=== PATIENT | female | born 1965 | race Caucasian/White ===

== ENCOUNTER → 2018-04-22 16:19 | Outpatient (CLI) | payer OTHER, SELFPAY ==
[2018-04-28 09:58] LABS: HPV Reflexed? NOT INDICATED
== END ==
PROVIDERS: Visit Provider Obstetrics & Gynecology
DX: Z12.4 Encounter for screening for malignant neoplasm of cervix (principal)
CPT/HCPCS: 88175; G0145

== ENCOUNTER → 2019-05-10 16:35 | Outpatient (CLI) | payer OTHER, SELFPAY ==
[2019-05-10 18:47] LABS: Hemoglobin A1c 5.7 % (4.2-6.3)
[2019-05-10 18:50] LABS: Estradiol < 11.0 pg/mL; Free T3 2.6 pg/mL (2.18-3.98); T4 Free Direct 0.96 ng/dL (0.76-1.46); Thyroid Stim Hormone (TSH) 2.88 uIU/mL (0.358-3.74)
[2019-05-16 16:55] LABS: HPV Reflexed? NOT INDICATED
== END ==
PROVIDERS: Visit Provider Obstetrics & Gynecology
DX: Z12.4 Encounter for screening for malignant neoplasm of cervix (principal); N92.6 Irregular menstruation, unspecified
CPT/HCPCS: 36415; 82670; 83036; 84144; 84403; 84439; 84443; 84481; 88175; G0145

== ENCOUNTER → 2019-05-19 14:58 | Outpatient (CLI) | payer OTHER, SELFPAY ==
[2019-05-19 16:14] LABS: Follicle Stimulating Hormone 82.6 mIU/mL
[2019-05-22 14:07] LABS: Thyroid Peroxidase AB 16 IU/mL (0-34)
[2019-05-22 17:38] LABS: Thyroglobulin Antibody < 1.0 IU/mL (0.0-0.9)
== END ==
PROVIDERS: Visit Provider Obstetrics & Gynecology
DX: E03.9 Hypothyroidism, unspecified (principal); N92.6 Irregular menstruation, unspecified
CPT/HCPCS: 36415; 83001; 86376; 86800

== ENCOUNTER → 2019-07-05 16:17 | Outpatient (CLI) | payer OTHER, SELFPAY ==
--- NOTE | 2019-07-05 16:23 | BI_ITS ---
MAMMOGRAPHY - BILATERAL SCREENING REASON FOR EXAM: Female, 54 years old. Routine annual screening examination. PERTINENT HISTORY: Aunt with breast cancer. TECHNIQUE: Digital bilateral breast roni (3D mammographic acquisition) in the CC and MLO projections. 2-D mediolateral oblique (MLO) and craniocaudad (CC) views of both breasts were obtained. CAD: Full Field Digital Mammography with Computer Added Detection was performed. COMPARISON: Comparison is made with prior osseous examination May 31, 2018. FINDINGS: Breast Composition: The breasts are heterogeneously dense, which may obscure small masses. There are no dominant masses or suspicious calcifications. No other significant abnormalities are identified. There has been no significant change since the prior study. BI/SCREEN MAMM (CAD) W/RONI BILAT IMPRESSION: Stable bilateral screening mammogram. Yearly follow-up mammogram recommended. (A) ASSESSMENT CATEGORY: BIRADS Category 1: Negative. A letter regarding these results will be sent to the patient by the facility within 30 days. Approximately 10% of breast cancers are not detected by mammography. A normal mammogram should not delay biopsy of a clinically suspicious abnormality. [id number] Electronically Signed: Mando Griggs, at 9:27 EDT , Service support ,
== END ==
PROVIDERS: Family Provider Family Medicine; PCP Family Medicine; Referring Provider Obstetrics & Gynecology; Visit Provider Obstetrics & Gynecology
DX: Z12.31 Encounter for screening mammogram for malignant neoplasm of breast (principal)
CPT/HCPCS: 77063; 77067

== ENCOUNTER → 2020-07-23 08:14 | Outpatient (CLI) | payer OTHER, SELFPAY ==
--- NOTE | 2020-07-23 08:17 | BI_ITS ---
MAMMOGRAPHY - BILATERAL SCREENING REASON FOR EXAM: Female, 55 years old. Routine annual screening examination. PERTINENT HISTORY: Aunt with breast cancer. TECHNIQUE: Digital bilateral breast roni (3D mammographic acquisition) in the CC and MLO projections. 2-D mediolateral oblique (MLO) and craniocaudad (CC) views of both breasts were obtained. CAD: Full Field Digital Mammography with Computer Added Detection was performed. COMPARISON: Comparison is made with prior examination of 07/05/2019. FINDINGS: Breast Composition: The breasts are heterogeneously dense, which may obscure small masses. There are no dominant masses or suspicious calcifications. No other significant abnormalities are identified. There has been no significant change since the prior study. BI/SCREEN MAMM (CAD) W/RONI BILAT IMPRESSION: Stable bilateral screening mammogram. Yearly follow-up mammogram recommended. (A) ASSESSMENT CATEGORY: BIRADS Category 1: Negative. A letter regarding these results will be sent to the patient by the facility within 30 days. Approximately 10% of breast cancers are not detected by mammography. A normal mammogram should not delay biopsy of a clinically suspicious abnormality. [id number] Electronically Signed: Mando Griggs, at 10:22 EDT , Service support ,
== END ==
PROVIDERS: PCP Family Medicine; Referring Provider Obstetrics & Gynecology; Visit Provider Obstetrics & Gynecology
DX: Z12.31 Encounter for screening mammogram for malignant neoplasm of breast (principal); Z80.3 Family history of malignant neoplasm of breast
CPT/HCPCS: 77063; 77067

== ENCOUNTER → 2020-08-26 08:39 | Outpatient (CLI) | payer OTHER, SELFPAY ==
[2020-08-26 10:28] LABS: Anion Gap 6 (5-15); BUN 21 mg/dL (7-18); BUN/Creat Ratio 32.3 RATIO (10-20); Calcium,Total 9.2 mg/dL (8.5-10.1); Chloride 106 mmol/L (98-107); Cholesterol 192 mg/dL (200); Creatinine, Serum 0.65 mg/dL (0.55-1.02); EST Glomerular Filtration Rate 101 mL/min (>60); Est Glom Filt Rate - Afr Amer 122 mL/min (>60); Glucose 104 mg/dL (74-106); High Density Lipoprotein 77 mg/dL; Potassium 4.1 mmol/L (3.5-5.1); Sodium Level 139 mmol/L (136-145); Triglycerides 28 mg/dL; Very Low Density Lipoprotein 6 mg/dL (5-40)
== END ==
PROVIDERS: PCP Family Medicine; Referring Provider Nurse Practitioner Family; Visit Provider Nurse Practitioner Family
DX: Z13.220 Encounter for screening for lipoid disorders (principal); Z13.228 Encounter for screening for other metabolic disorders
CPT/HCPCS: 36415; 80048; 80061

== ENCOUNTER → 2020-09-06 12:45 | Outpatient (CLI) | payer OTHER, SELFPAY | PROVIDERS: PCP Family Medicine; Referring Provider Family Medicine; Visit Provider Family Medicine | DX: J06.9 Acute upper respiratory infection, unspecified (principal) | CPT/HCPCS: 87635; U0003 ==

== ENCOUNTER 2020-09-12 05:52 | Day surgery (SDC) | payer OTHER, SELFPAY ==
[2020-09-10 16:46] LABS: Hematocrit 37.8 % (37-47); Hemoglobin 12.9 g/dL (12.0-15.0); Mean Corp Hgb Conc 34.1 g/dL (32-36); Mean Corpuscular Hgb 29.3 pg (27.0-32.0); Mean Corpuscular Volume 85.7 fL (81-99); Mean Platelet Vol. 9.8 fl (6.2-12.0); Platelet Count 285 K/mm3 (150-450); RBC Distribution Width CV 12.9 % (11.6-14.6); RBC Distribution Width SD 40.1 fl (35.1-43.9); Red Blood Count 4.41 M/mm3 (4.2-5.4); White Blood Count 9.4 K/mm3 (4.4-11.0)
[2020-09-10 16:58] LABS: Prothrombin Time (Protime)PT. 12.9 SECONDS (11.7-14.9)
[2020-09-10 16:59] LABS: Partial Thromboplast Time 29.1 Seconds (24.1-36.2)
[2020-09-12] VITALS (7 sets, daily range): BP systolic 87–116; BP diastolic 52–77; PULSE 57–82; RESP 16–18; TEMP 36.1–36.9; O2SAT 97–100; BMI 21.2
[2020-09-12] MEDS: Lactated Ringers 1,000 ML 125 ML IV (06:35)
--- NOTE | 2020-09-12 07:09 | HP.PCM_ITS ---
History and Physical Date of Admission: 09/12/20 Surgical History and Physical Date: 09/10/2020 Name: ALEJA SUÁERZ Age: 55 Date of : 1965 Aleja Suárez, a 55 year old female 3 0 0 0 3, presents for Hysteroscopy, dilation and curettage on September 12, 2020 at 7:30. -- Aleja is scheduled for hysteroscopy, dilation and curettage with Symphion polypectomy for recurrent postmenopausal bleeding. She had negative COVID19 testing, obtained last week after reports sore throat. She denies fever, chills, sore throat, cough or chest pain. She feels well today. [facility] ULTRASOUND 07/19/20 UTERUS: 7.8 x 4.9 x 3.7cm. ENDOMETRIAL ECHO: 1.7mm. RIGHT OVARY: 1.5 x 1.2 x 1.3cm. LEFT OVARY: 1.6 x 1.2 x 1.4cm. BLADDER: No bladder masses visualized. FREE FLUID: NONE. OTHER PERTINENT FINDINGS: small nabothian cysts seen in cx. and microcalcifications seen in endometrium. MEDICATIONS HISTORY: Patient is also takin. multivitamin chewable tablet ALLERGIES: No Known Allergies Infections - Chicken pox and [place] Illnesses - no serious past illnesses Accidents - no injuries of consequence Hospitalizations - Childbirth and see surgery shingles; Review of Systems: GENERAL - Denies fever, or chills SKIN - Denies skin changes EYES - Denies visual changes EARS - Denies difficulty hearing NOSE - Denies nasal congestion or bleeding MOUTH - Denies sore throat or difficulty swallowing NECK - Denies pain or swelling RESPIRATORY - Denies shortness of breath or wheezing CARDIOVASCULAR - Denies palpitations or chest pain GASTROINTESTINAL - Denies nausea, vomiting, diarrhea, constipation GENITOURINARY - Denies dysuria, frequency of urination, incontinence of urine MUSCULOSKELETAL - Denies joint or muscle pain NEUROLOGICAL - Denies localized numbness or weakness PSYCHIATRIC - Denies depression or anxiety ENDOCRINE - Denies heat or cold intolerance, weight loss or gain HEMATO-IMMUNOLOGIC - Denies excesive bleeding with cuts SOCIAL HISTORY: Alcohol Use - denies drinking Smoking - denies smoking Diet - balanced Diet Lifestyle - moderate stress lifestyle and work and family Exercise - regular Seat Belt Use - always Employer - [employer] 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 Drug Use - denies use of street drugs Sexual Activity - Hours Worked - 40 hours per week Spouse-Sig Other Name - Sly Spouse-Sig Other Occupation - retired [employer] Spouse-Sig Other Phone No - [phone] Children Name(s) - Ken Kim Chandler, Taylor (adopted daughter) Control - Vasectomy FAMILY HISTORY: MENSTRUAL HISTORY: LMP Known?- DefiniteAmount/Duration - 1 day, LMP - 06/30/20, Age Onset Menarche - 14 PAST PREGNANCIES: Total Pregnancies - 3; Full Term Pregnancies - 3; Premature - 0; Abortions, Induced - 0; Abortions, Spontaneous - 0; Ectopics - 0; Multiple Births - 0; Living Children - 3 SURGICAL HISTORY: 1. wisdom teeth ; - PHYSICAL EXAM BP- 108/56 Sitting, Right arm, regular cuff Weight- 116.17713 lbs Height- 62.00 inch BMI:21.26 CONSTITUTIONAL - NAD, well nourished, and well developed SKIN - No rash, lesions, or ulcers HEENT - normocephalic, atraumatic, sclerae anicteric NECK - No nodes, no nuchal rigidity and thyroid normal size and texture LYMPH NODES - Palpation of lymph nodes in neck and groins within normal limits LUNGS - CTA x2 without wheezes, crackles or rales CARDIAC - Regular rate and rhythm without rubs, murmurs, or gallops BREAST - No dominant masses, no tenderness, no axillary adenopathy, no nipple discharge, no skin changes ABDOMEN - Without hepatosplenomegaly, distention, masses, rebound, or guarding; normal bowel sounds; no hernias EXTREMITIES - No edema or calf tenderness NEUROLOGICAL - normal gait, normal balance, normal motor PSYCHIATRIC - A and O to time, place, person, mood and affect DETAILED PELVIC EXAM External Genital Vagina - non-tender without lesions Urethra/Urethral Meatus - non-tender Bladder - non-tender Vagina - vaginal avilez are pink and moist without loss of rugae and no evidence of atropy, there is blood tinged discharge in vault and appears to be coming from cervical os Cervix - without cervical motion tenderness and has normal size and features without evident lesions Uterus - 5-6 cm in size, mobile and nontender Adnexa - clear without massess or tenderness ASSESSMENT/PLAN: 1. Other Specified Abnormal Uterine And Vaginal Bleeding and Postmenopausal Bleeding US reviewed - 1.7mm endometrium, however, cystic structure present - suggestive of polyp. Ovaries normal in appearance. Plan for hysteroscopy, dilation and curettage, polypectomy Procedural r/b/i/a reviewed, consents signed Preop instructions reviewed as well as anticipated outpatient hospitalization and recovery Pt given opportunity to ask questions and questions answered to her satisfaction.
--- NOTE | 2020-09-12 07:30 | EMB_PTH ---
PATIENT: BO CHANDLER [place] [facility] [id number] AGE/SX: 55/F ROOM: RE09/12/[address]: Dr. Laquita Rogers MD : 1965 BED: DIS: 09/12/2020 SPEC #: [id number] RECD: 09/12/20 10:28 STATUS: BRIAN SUNITA #: [id number] ANNABEL: 09/12/20 07:[address]: Laquita Hanna DEPT: SURGICAL PATHOLOGY RECD BY: Lashawn Monaco ENTERED: 09/12/20 11:58 SP TYPE: ENDOM BX/C OTHR DR: Dr. Earnest Zheng MD Tissues: Endometrium, NOS Procedures: Surgery Specimen Level IV HEADER OPERATION: Hysterectomy, D & C Symphion PRE-OP DIAGNOSIS: Postmenopausal bleeding TISSUE SUBMITTED: Endometrial sampling and endocervical sampling with polyp MICROSCOPIC DIAGNOSIS Endometrial and endocervical sampling with polyp: Strips of benign endometrial epithelium and superficial fragments of benign endometrial tissue, consistent with atrophic endometrium. Fragments of benign endocervical epithelium. Fragments of benign inflamed stromal tissue, blood and mucous. Negative for hyperplasia. See comment. DILIP:mary 09/13/20 COMMENT No overlying epithelial lining is noted in these fragments. Correlation with clinical findings and appropriate follow up are necessary. Case has been reviewed in consultation with Dr. Rodriguez who concurs with the above diagnosis. IDC:AM MICROSCOPIC DESCRIPTION Slides are reviewed. GROSS DESCRIPTION Received in fixative is one container labeled with the patient's name and designated endometrial and endocervical sampling with polyp. The specimen consists of multiple fragments of hemorrhagic soft tissue that in aggregate measure 1.5 x 0.5 x 0.1 cm. The specimen is totally submitted in one cassette. / DILIP:mary 09/12/20 TC:5 CPT: 06901
[2020-09-12] MEDS: Lidocaine 1% (30 ml sdv) 30 ML Vial (07:45)
--- NOTE | 2020-09-12 09:13 | PCM.DC.D&C ---
Discharge Diet: No Restrictions Discharge Activity: Return to Normal Activity, May Shower, - - No tub bath x 2 weeks May resume sexual activity in: - - 2-4 weeks Call your doctor if you observe: Fever of 101 or Higher, Inability to urinate, Inability to have a bowel movement, Using more than one pad per hour, Shortness of breath, Chest pain, Calf discomfort, Uncontrolled pain Allergies/Adverse Reactions: Allergies No Known Allergies Allergy (Verified 09/04/20 08:12) Medications to take at Discharge Bacillus Coagulans [Probiotic] 1 ea PO DAILY 09/04/20 Calcium Carb/Vitamin D3/Vit K1 [Calcium + D Soft Chewable Tab] 1 ea PO DAILY 09/04/20 Multivitamin [Animal Chews] 1 ea PO DAILY 09/04/20 Ibuprofen Liquid [Motrin Liquid] 600 mg PO 4X/DAY PRN #300 ml 09/12/20 The following prescriptions were given: Ibuprofen Liquid [Motrin Liquid] 600 mg PO 4X/DAY PRN #300 ml PRN Reason: Pain 1-10 Or Fever Transmission Status: Pending to [facility] Orders to be completed after discharge: COVID 19 AG KARINA (RN COLLECT) Time Frame: 09/10/20, Facility: [facility], Location: Laboratory Primary Care Physician: Jayme Zheng MD [Primary Care Provider] - Test Results: Test results from this visit will be discussed in further detail at your follow-up appointment, if applicable. Please Follow Up With: Laquita Hanna MD When: 2-4 weeks
--- NOTE | 2020-09-12 09:17 | OP.PCM_ITS ---
Problem List (1) Postmenopausal bleeding Status: Acute Report of Operation Date of Procedure: 09/12/20 Pre-Operative Diagnosis: Postmenopausal bleeding. Endometrial polyp Post-Operative Diagnosis: Postmenopausal bleeding. Cervical polyp Surgery/Procedure Performed:: Hysteroscopy, dilation and curettage with Symphion endometrial sampling Description of Surgical Findings:: atrophic endometrium apical endocervical polyp noted compensation business partner: None Type of Anesthesia:: Local MAC Anesthesiologist: Codey Dsouza Specimen's removed: 1. endometrial and endocervical sampling with polyp Estimated Blood Loss (mL): 10 ml Fluids Replaced: 800 ml Description of Procedure: Indications: 55-year-old para 2 postmenopausal female with recurrent postmenopausal bleeding. She had previously had benign endometrial biopsy and pelvic ultrasound showed a 1.7 elevated inner endometrial stripe with calcifications suggestive of polyp. She is advised to proceed with hysteroscopy dilation and curettage with polypectomy as indicated. Procedural risks, benefits, indications and alternatives were reviewed. Procedure: Patient was brought to the operating room and signed and was performed. She is placed in the dorsal supine position and induced under MAC. She was repositioned into dorsolithotomy and examination under anesthesia was performed. Her perineum was prepped and straight catheterization of the bladder performed. She was draped in sterile fashion and a speculum was placed vaginally. Notably the vagina atrophic. The cervix was mildly stenosed and subsequently dilated. Uterine sound was performed in 5 cm initially. Hysteroscopy was performed demonstrating a false tract have been made however is not and unable to traverse the internal os due to lack of dilation apically, an endocervical polyp was noted. I performed hysteroscopy using a 3 mm scope demonstrating a thin endometrium. I again performed dilation at the angle of the os as demonstrated by the hysteroscopy. Hysteroscopy was then performed with the Symphion system with ease entering the endometrium.Hysteroscopic endometrial sampling was performed as well as endocervical polpypectomy. The procedure was complete. The scope was removed. The tenaculum was removed from the cervix and speculum removed from the vagina. There was excellent hemostasis. The patient was placed into dorsal supine, awakened, and transferred to the recovery room without complications. Sponge counts correct x 2. - Complications none - Admit VTE Documentation VTE Present on Admission: No VTE Mechan Device Prophylaxis: SCD's VTE Pharm Prophylaxis ordered?: No
== END 2020-09-12 10:23 | disposition home or self-care (01) ==
LOC: SDC 05:52 → AC 05:53
PROVIDERS: PCP Family Medicine; Referring Provider Obstetrics & Gynecology; Visit Provider Obstetrics & Gynecology
PROC: 0UB98ZZ Excision of Uterus, Via Natural or Artificial Opening Endoscopic (ICD-10-PCS; CPT 58558; principal; 2020-09-12 07:15)
DX: N95.0 Postmenopausal bleeding (principal); N85.8 Other specified noninflammatory disorders of uterus; N84.1 Polyp of cervix uteri
CPT/HCPCS: 00952; 58558; 36415; 85027; 85610; 85730; 86850; 86900; 86901; 88305; J7120; A4216; J2405

== ENCOUNTER → 2021-06-03 18:23 | Outpatient (CLI) | payer OTHER, SELFPAY | LOC: LAB 18:24 → LABSPEC 20:18 | PROVIDERS: PCP Family Medicine; Visit Provider Family Medicine | DX: U07.1 COVID-19 (principal) | CPT/HCPCS: 87635; U0005; U0003 ==

== ENCOUNTER → 2021-08-15 08:01 | Outpatient (CLI) | payer OTHER, SELFPAY ==
--- NOTE | 2021-08-15 08:17 | BI_ITS ---
MAMMOGRAPHY - BILATERAL SCREENING REASON FOR EXAM: Female, 56 years old. Routine annual screening examination. PERTINENT HISTORY: Aunt with breast cancer. TECHNIQUE: Digital bilateral breast roni (3D mammographic acquisition) in the CC and MLO projections. 2-D mediolateral oblique (MLO) and craniocaudad (CC) views of both breasts were obtained. CAD: Full Field Digital Mammography with Computer Added Detection was performed. COMPARISON: Comparison is made with prior study 07/23/2020 and 07/05/2019. FINDINGS: Breast Composition: The breasts are heterogeneously dense, which may obscure small masses. There are no dominant masses or suspicious calcifications. No other significant abnormalities are identified. There has been no significant change since the prior study. BI/SCRN MAMM (CAD)W/RONI BILAT IMPRESSION: Stable bilateral screening mammogram. Yearly follow-up mammogram recommended. (A) ASSESSMENT CATEGORY: BIRADS Category 1: Negative. A letter regarding these results will be sent to the patient by the facility within 30 days. Approximately 10% of breast cancers are not detected by mammography. A normal mammogram should not delay biopsy of a clinically suspicious abnormality. [id number] Electronically Signed: Mando Griggs MD at 9:08 EDT , Service support ,
== END ==
PROVIDERS: PCP Family Medicine; Referring Provider Obstetrics & Gynecology; Visit Provider Obstetrics & Gynecology
DX: Z12.31 Encounter for screening mammogram for malignant neoplasm of breast (principal)
CPT/HCPCS: 77063; 77067

== ENCOUNTER → 2022-04-09 | Outpatient (CLI) | payer OTHER, SELFPAY ==
[2022-04-09 11:18] LABS: Anion Gap 7 (5-15); BUN 17 mg/dL (7-18); BUN/Creat Ratio 28.5 RATIO (10-20); Calcium,Total 9.2 mg/dL (8.5-10.1); Chloride 105 mmol/L (98-107); Cholesterol 212 mg/dL (200); EST Glomerular Filtration Rate 111 mL/min (>60); Est Glom Filt Rate - Afr Amer 134 mL/min (>60); Glucose 104 mg/dL (74-106); High Density Lipoprotein 66 mg/dL; Potassium 3.8 mmol/L (3.5-5.1); Sodium Level 140 mmol/L (136-145); Triglycerides 30 mg/dL; Very Low Density Lipoprotein 6 mg/dL (5-40)
== END | disposition home or self-care (01) ==
LOC: MFPLAB 09:04
PROVIDERS: PCP Family Medicine; Visit Provider Nurse Practitioner Family
DX: Z13.1 Encounter for screening for diabetes mellitus (principal); Z13.220 Encounter for screening for lipoid disorders
CPT/HCPCS: 36415; 80048; 80061

== ENCOUNTER → 2022-10-28 | Outpatient (CLI) | payer OTHER, SELFPAY ==
[2022-10-31 12:29] LABS: HPV APTIMA, High Risk Negative (Negative)
== END | disposition home or self-care (01) ==
LOC: LABSPEC 10:05
PROVIDERS: PCP Family Medicine; Visit Provider Student in an Organized Health Care Education/Training Program
DX: Z12.4 Encounter for screening for malignant neoplasm of cervix (principal)
CPT/HCPCS: 87624; 88175; G0145

== ENCOUNTER → 2022-11-10 | Outpatient (CLI) | payer OTHER, SELFPAY ==
--- NOTE | 2022-11-10 12:39 | BI_ITS ---
MAMMOGRAPHY - BILATERAL SCREENING REASON FOR EXAM: Female, 57 years old. Routine annual screening examination. PERTINENT HISTORY: Aunt with breast cancer. TECHNIQUE: Digital bilateral breast roni (3D mammographic acquisition) in the CC and MLO projections. 2-D mediolateral oblique (MLO) and craniocaudad (CC) views of both breasts were obtained. CAD: Full Field Digital Mammography with Computer Added Detection was performed. COMPARISON: Comparison is made with prior study 08/15/2021 and 07/23/2020. FINDINGS: Breast Composition: The breasts are heterogeneously dense, which may obscure small masses. There are no dominant masses or suspicious calcifications. No other significant abnormalities are identified. There has been no significant change since the prior study. BI/SCRN MAMM (CAD)W/RONI BILAT IMPRESSION: Stable bilateral screening mammogram. Yearly follow-up mammogram recommended. (A) ASSESSMENT CATEGORY: BIRADS Category 1: Negative. A letter regarding these results will be sent to the patient by the facility within 30 days. Approximately 10% of breast cancers are not detected by mammography. A normal mammogram should not delay biopsy of a clinically suspicious abnormality. [id number] Electronically Signed: Mando Griggs MD at 13:54 EST ,
== END | disposition home or self-care (01) ==
LOC: OPBI 12:37
PROVIDERS: PCP Family Medicine; Visit Provider Student in an Organized Health Care Education/Training Program
DX: Z12.31 Encounter for screening mammogram for malignant neoplasm of breast (principal); Z80.3 Family history of malignant neoplasm of breast
CPT/HCPCS: 77063; 77067

== ENCOUNTER → 2023-04-19 | Outpatient (CLI) | payer OTHER, SELFPAY | END | disposition home or self-care (01) | LOC: LABSPEC 10:17 | PROVIDERS: PCP Family Medicine; Visit Provider Student in an Organized Health Care Education/Training Program | DX: N39.0 Urinary tract infection, site not specified (principal) | CPT/HCPCS: 87086; 87088 ==

== ENCOUNTER → 2023-05-21 | Outpatient (CLI) | payer OTHER, SELFPAY ==
[2023-05-21 10:44] LABS: Vitamin D,25 Hydroxy 48.4 ng/mL
[2023-05-21 10:45] LABS: Anion Gap 6 (5-15); BUN 16 mg/dL (7-18); BUN/Creat Ratio 23.3 RATIO (10-20); Calcium,Total 8.8 mg/dL (8.5-10.1); Chloride 107 mmol/L (98-107); Cholesterol 212 mg/dL (200); Creatinine, Serum 0.69 mg/dL (0.55-1.02); EST Glomerular Filtration Rate 94 mL/min (>60); Est Glom Filt Rate - Afr Amer 113 mL/min (>60); Glucose 111 mg/dL (74-106); High Density Lipoprotein 72 mg/dL; Potassium 4.1 mmol/L (3.5-5.1); Sodium Level 137 mmol/L (136-145); Thyroid Stim Hormone (TSH) 3.02 uIU/mL (0.358-3.74); Triglycerides 35 mg/dL; Very Low Density Lipoprotein 7 mg/dL (5-40)
== END | disposition home or self-care (01) ==
LOC: MFPLAB 08:14
PROVIDERS: PCP Family Medicine; Visit Provider Family Medicine
DX: Z00.00 Encounter for general adult medical examination without abnormal findings (principal); Z13.1 Encounter for screening for diabetes mellitus; Z13.220 Encounter for screening for lipoid disorders
CPT/HCPCS: 36415; 80048; 80061; 82306; 84443

== ENCOUNTER → 2024-03-14 | Outpatient (CLI) | payer OTHER, SELFPAY ==
--- NOTE | 2024-03-14 12:37 | BI_ITS ---
MAMMOGRAPHY - BILATERAL SCREENING REASON FOR EXAM: Female, 59 years old. Routine annual screening examination. PERTINENT HISTORY: Aunt with breast cancer. TECHNIQUE: Digital bilateral breast roni (3D mammographic acquisition) in the CC and MLO projections. 2-D mediolateral oblique (MLO) and craniocaudad (CC) views of both breasts were obtained. CAD: Full Field Digital Mammography with Computer Added Detection was performed. COMPARISON: Comparison is made with prior study dated November 10, 2022 and August 15, 2021. FINDINGS: Breast Composition: The breasts are heterogeneously dense, which may obscure small masses. There are no dominant masses or suspicious calcifications. No other significant abnormalities are identified. There has been no significant change since the prior study. BI/SCRN MAMM (CAD)W/RONI BILAT IMPRESSION: Stable bilateral screening mammogram. Yearly follow-up mammogram recommended. (A) ASSESSMENT CATEGORY: BIRADS Category 1: Negative. A letter regarding these results will be sent to the patient by the facility within 30 days. Approximately 10% of breast cancers are not detected by mammography. A normal mammogram should not delay biopsy of a clinically suspicious abnormality. [id number] Electronically Signed: Mando Griggs MD at 14:18 EDT ,
== END | disposition home or self-care (01) ==
LOC: OPBI 12:37
PROVIDERS: PCP Family Medicine; Referring Provider Obstetrics & Gynecology; Visit Provider Obstetrics & Gynecology
DX: Z12.31 Encounter for screening mammogram for malignant neoplasm of breast (principal)
CPT/HCPCS: 77063; 77067

== ENCOUNTER → 2024-05-25 | Outpatient (CLI) | payer OTHER, SELFPAY ==
[2024-05-25 12:33] LABS: Anion Gap 8 (5-15); BUN 18 mg/dL (7-18); BUN/Creat Ratio 27.3 RATIO (10-20); Calcium,Total 9.4 mg/dL (8.5-10.1); Chloride 105 mmol/L (98-107); Cholesterol 208 mg/dL (200); Creatinine, Serum 0.66 mg/dL (0.55-1.02); EST Glomerular Filtration Rate 98 mL/min (>60); Est Glom Filt Rate - Afr Amer 118 mL/min (>60); Glucose 116 mg/dL (74-106); High Density Lipoprotein 70 mg/dL; Potassium 3.9 mmol/L (3.5-5.1); Sodium Level 141 mmol/L (136-145); Triglycerides 28 mg/dL; Very Low Density Lipoprotein 6 mg/dL (5-40)
[2024-05-25 13:39] LABS: Vitamin D,25 Hydroxy 56.4 ng/mL
== END | disposition home or self-care (01) ==
LOC: MFPLAB 09:13
PROVIDERS: PCP Family Medicine; Visit Provider Family Medicine
DX: Z00.00 Encounter for general adult medical examination without abnormal findings (principal)
CPT/HCPCS: 36415; 80048; 80061; 82306; 84443

== ENCOUNTER → 2025-04-02 | Outpatient (CLI) | payer OTHER, SELFPAY ==
--- NOTE | 2025-04-02 13:45 | BI_ITS ---
EXAM: SCRN MAMM (CAD)W/RONI BILAT DATE: 04/02/2025 CLINICAL HISTORY: F, Age 60 y/o , SCREEN FOR BREAST CANCER BREAST CANCER RISK ASSESSMENT: Has not been calculated TECHNIQUE: SCRN MAMM (CAD)W/RONI BILAT COMPARISON: Prior exam(s) dated 03/14/2024. FINDINGS: TISSUE DENSITY: The breast tissue is heterogeneously dense, which may obscure small masses. Bilateral Breast Mammographic Findings: There are no suspicious masses, suspicious cluster of microcalcifications, architectural distortion or secondary signs of malignancy identified in either breast. The right nipple is not in profile. BI/SCRN MAMM (CAD)W/RONI BILAT IMPRESSION: Benign screening mammogram. OVERALL FINAL ASSESSMENT BI-RADS 2: BENIGN RECOMMEND ANNUAL MAMMOGRAPHIC SCREENING. RECOMMENDATION: Routine annual follow-up in 1 Year A letter with findings and recommendations will be mailed to the patient. Reading Location: [id number]
--- OUTSIDE RECORDS SUMMARY | 2025-04-02 22:45 | XMS RPT_ITS | CCD ---
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 Gen Zheng MD Primary Care Provider Dr. Clarissa Valle DO Attending Provider Dr. Clarissa Valle DO Referring Provider Dr. Gen Zheng MD Referring Provider Allergies Allergy Classification Reported Allergen(s) Allergy Type Date of Onset Reaction(s) Facility (1 source) ALLERGIES NOT ON FILE; Translations: [ALLERGIES NOT ON FILE] Propensity to adverse reactions (disorder) [facility] 2 Repository Medications Current Medications Medication Drug Class(es) Dates Sig (Normalized) Sig (Original) bacillus coagulans [id number] unt chewable tablet (6 sources) Start: 09-04-2020 take 1 tablet by mouth once daily Bacillus Coagulans 1 EACH tablet,chewable Active 1 NMA PO DAILY September 04, 2020 1:00am Start: 09-04-2020 Bacillus Coagu lans Active 1 EACH PO DAILY September 04, 2020 1:00am calcium carbonate 1250 mg / cholecalciferol 1000 unt / vitamin k 0.4 mg chewable tablet (6 sources) Vitamin D Start: 09-04-2020 take 1 tablet by mouth once daily Calcium-Vitamin D3-Vitamin K 1 EACH tablet,chewable Active 1 NMA PO DAILY September 04, 2020 1:00am Start: 09-04-2020 Calcium-Vitami n D3-Vitamin K Active 1 EACH PO DAILY September 04, 2020 1:00am Multivitamin tablet (1 source) Start: 02-18-2024 Multivitamin t ablet Active 1 {tbl} PO DAILY February 18, 2024 12:00am Pediatric Multivitamin (5 sources) Start: 09-04-2020 Pediatric Mult ivitamin Active 1 EACH PO DAILY September 04, 2020 12:00am Start: 09-04-2020 Pediatric Mult ivitamin Active 1 EACH PO DAILY September 04, 2020 1:00am Completed/Discontinued Medications Medication Drug Class(es) Dates Sig (Normalized) Sig (Original) ibuprofen 20 mg/ml oral suspension (6 sources) Nonsteroidal Anti-inflammatory Drug Start: 09-12-2020 End: 02-18-2024 Ibuprofen 100 MG/5 ML suspension Discontinued 600 mg PO 4 TIMES DAILY as needed for Pain 1-10 Or Fever 300 September 12, 2020 10:11am February 18, 2024 3:43pm Pediatric Multivitamin 1 EACH tablet,chewable (1 source) Start: 09-04-2020 End: 02-18-2024 Pediatric Multivitamin 1 EACH tablet,chewable Discontinued 1 NMA PO DAILY September 04, 2020 1:00am February 18, 2024 3:43pm psyllium 400 mg oral capsule (1 source) Start: 02-18-2024 End: 04-02-2025 Psyllium Husk (Daily Fiber) 0.4 gram capsule Discontinued 0.4 g PO DAILY February 18, 2024 12:00am April 02, 2025 2:57pm Problems Problem Classification Problem Date Documented Date Episodic/Chronic Disorders of lipid metabolism (4 sources) Pure hypercholesterolemia; Translations: [Pure hypercholesterolemia, unspecified] Onset: 08-20-2023 08-20-2023 Chronic Menopausal disorders (6 sources) Postmenopausal bleeding; Translations: [Postmenopausal bleeding] 09-12-2020 Chronic Other screening for suspected conditions (not mental disorders or infectious disease) (1 source) Encounter for screening mammogram for malignant neoplasm of breast; Translations: [Encounter for screening mammogram for malignant neoplasm of breast] Onset: 06-16-2025 Episodic Unclassified (1 source) Unknown / UNK(Unknown) Onset: 05-31-2018 Results Test Name Value Interpretation Reference Range Facility Basic Metabolic Profile (BMP )on 05-25-2024 BUN/CRE 27.3 RATIO High 10-20 [facility] Comment on above: Performed By: #### L 501.9520, L500.4100, L500.2500, L506.1000 #### [facility] [address] [place], [address] CA,Total 9.4 mg/dL Normal 8.5-10.1 [facility] Comment on above: Performed By: #### L [id number], L500.4100, L500.2500, L506.1000 #### [facility] [address] [place], [address] Chloride [Moles/Vol] 105 mmol/L Normal 98-107 [facility] Comment on above: Performed By: #### L [id number], L500.4100, L500.2500, L506.1000 #### [facility] [address] [place], [address] CO2 [Moles/Vol] 28.0 mmol/L Normal 21.0-32.0 [facility] Comment on above: Performed By: #### L [id number], L500.4100, L500.2500, L506.1000 #### [facility] [address] [place], [address] Creatinine [Mass/Vol] 0.66 mg/dL Normal 0.55-1.02 [facility] Comment on above: Result Comment: The validity of the calculated GFR GFRAA in patients over 70 years has not been determined. Clinical correlation is essential. Performed By: #### L [id number], L500.4100, L500.2500, L506.1000 #### [facility] [address] [place], [address] EST GFR - AA 118 mL/min Normal >60 [facility] Comment on above: Result Comment: Afri can [place] GFR Calc Performed By: #### L [id number], L500.4100, L500.2500, L506.1000 #### [facility] [address] [place], [address] GAP 8 Normal 5-15 [facility] Comment on above: Performed By: #### L [id number], L500.4100, L500.2500, L506.1000 #### [facility] [address] [place], [address] GFR/1.73 sq M.predicted among non-blacks MDRD (S/P/Bld) [Vol rate/Area] 98 mL/min/{1.73_m2} Normal >60 [facility] Comment on above: Result Comment: Non- GFR Calc Performed By: #### L [id number], L500.4100, L500.2500, L506.1000 #### [facility] [address] [place], [address] Glucose [Mass/Vol] 116 mg/dL High 74-106 [facility] Comment on above: Result Comment: Fast ing Glucose result from 100 to 125 mg/dL suggests IMPAIRED HOMEOSTASIS per A.D.A. criteria. Performed By: #### L 501.9520, L500.4100, L500.2500, L506.1000 #### [facility] [address] [place], [address] Potassium [Moles/Vol] 3.9 mmol/L Normal 3.5-5.1 [facility] Comment on above: Performed By: #### L [id number], L500.4100, L500.2500, L506.1000 #### [facility] [address] [place], [address] Sodium [Moles/Vol] 141 mmol/L Normal 136-145 [facility] Comment on above: Performed By: #### L [id number], L500.4100, L500.2500, L506.1000 #### [facility] [address] [place], [address] Urea nitrogen [Mass/Vol] 18 mg/dL Normal 7-18 [facility] Comment on above: Performed By: #### L [id number], L500.4100, L500.2500, L506.1000 #### [facility] [address] [place], [address] Lipid Profileon 05-25-2024 Cholesterol [Mass/Vol] 208 mg/dL High 200 [facility] Comment on above: Result Comment: <200 mg/dL Desirable 200-240 mg/dL Borderline >240 mg/dL High Risk Performed By: #### L 501.9520, L500.4100, L500.2500, L506.1000 #### [facility] [address] [place], [address] Cholesterol in HDL [Mass/Vol] 70 mg/dL Normal [facility] Comment on above: Result Comment: The drugs N-Acetylcysteine and Metamizole may falsely depress this assay. Reference Range HDL <40 mg/dL Low HDL Cholesterol HDL >or= 60 mg/dL High HDL Cholesterol Performed By: #### L 501.9520, L500.4100, L500.2500, L506.1000 #### [facility] [address] [place], [address] Cholesterol in LDL [Mass/Vol] 132 mg/dL High 0-130 [facility] Comment on above: Performed By: #### L 501.9520, L500.4100, L500.2500, L506.1000 #### [facility] [address] [place], [address] Cholesterol in VLDL [Mass/Vol] 6 mg/dL Normal 5-40 [facility] Comment on above: Performed By: #### L 501.9520, L500.4100, L500.2500, L506.1000 #### [facility] [address] [place], [address] Triglyceride [Mass/Vol] 28 mg/dL Normal [facility] Comment on above: Result Comment: The drugs N-Acetylcysteine and Metamizole may falsely depress this assay. Serum Triglycerides Reference Interval Normal <150 mg/dL Borderline high 150 - 199 mg/dL High 200 - 499 mg/dL Very High > or = 500 mg/dL Performed By: #### L 501.9520, L500.4100, L500.2500, L506.1000 #### [facility] [address] [place], [address] Thyroid Stim Hormone (TSH)on 05-25-2024 TSH 2.740 uIU/mL Normal 0.358-3.740 [facility] Comment on above: Performed By: #### L [id number], L500.4100, L500.2500, L506.1000 #### [facility] [address] [place], [address] Vitamin D,25 Hydroxyon 05-25 Vitamin D 25-OH 56.4 ng/mL Normal [facility] Comment on above: Result Comment: Nancy min D 25(OH) Status Range Deficiency <20 ng/mL (50nmol/L) Insufficiency 20 - 30 ng/mL (50 - 75 nmol/L) Sufficiency 30 - 100 ng/mL (75 - 250 nmol/L) Toxicity >100 ng/mL (>250 nmol/L) Performed By: #### L [id number], L500.4100, L500.2500, L506.1000 #### [facility] [address] [place], [place], [id number] CT for calcium scoring WO nh ntrast and CTA W contrast IV Heart and coronary arterieson 08-23-2023 1. Coronary artery calcium score of 0*. *Coronary artery calcium scoring may be helpful in predicting the risk for future coronary heart disease events. According to the [place] [employer] Clinical Expert Consensus Task Force, such testing provides important prognostic information in patients with more than one coronary heart disease risk factor. The coronary artery calcium score correlates with the annual risk of a non-fatal myocardial infarction or coronary heart disease . Coronary artery score Annual Risk 0-99 0.4% 100-399 1.3% >400 2.4% These three breakpoints correspond to lower, intermediate and high risk states for future coronary events. Such information should be used, along with appropriate clinical judgment, to make decisions regarding the intensity of risk factor management strategies to treat blood lipids and to modify other non-lipid coronary risk factors. Reference: Rupert P et al. Circulation. 2007; 115:402-426 MACRO: None Signed by: Ramses Hassan 08/23/2023 1:14 PM Dictation workstation: [id number] ANGEL Interpreted By: Ramses Hassan, STUDY: CT CARDIAC SCORING WO IV CONTRAST; 08/20/2023 10:04 am INDICATION: Signs/Symptoms:ELEVATE D LDL. COMPARISON: None. ACCESSION NUMBER(S): [id number] ORDERING CLINICIAN: GEN ZHENG TECHNIQUE: Using prospective ECG gating, CT scan of the coronary arteries was performed without intravenous contrast. Coronary calcium scoring was performed according to the method of Agatston. FINDINGS: The score and distribution of calcium in the coronary arteries is as follows: LM 0 LAD 0 LCx 0 RCA 0 Total 0 The visualized mid/lower ascending thoracic aorta measures 2.9 cm in diameter. The heart is normal in size. No pericardial effusion is present. No gross evidence of mediastinal or hilar lymphadenopathy or masses is identified. The visualized segments of the lungs are normally expanded. The visualized subdiaphragmatic structures appear intact. [facility] Ramses Hassan MD - 08/23/2023 Interpreted By: Ramses Hassan, STUDY: CT CARDIAC SCORING WO IV CONTRAST; 08/20/2023 10:04 am INDICATION: Signs/Symptoms:ELEVATE D LDL. COMPARISON: None. ACCESSION NUMBER(S): [id number] ORDERING CLINICIAN: GEN ZHENG TECHNIQUE: Using prospective ECG gating, CT scan of the coronary arteries was performed without intravenous contrast. Coronary calcium scoring was performed according to the method of Agatston. FINDINGS: The score and distribution of calcium in the coronary arteries is as follows: LM 0 LAD 0 LCx 0 RCA 0 Total 0 The visualized mid/lower ascending thoracic aorta measures 2.9 cm in diameter. The heart is normal in size. No pericardial effusion is present. No gross evidence of mediastinal or hilar lymphadenopathy or masses is identified. The visualized segments of the lungs are normally expanded. The visualized subdiaphragmatic structures appear intact. IMPRESSION: 1. Coronary artery calcium score of 0*. *Coronary artery calcium scoring may be helpful in predicting the risk for future coronary heart disease events. According to the [place] [employer] Clinical Expert Consensus Task Force, such testing provides important prognostic information in patients with more than one coronary heart disease risk factor. The coronary artery calcium score correlates with the annual risk of a non-fatal myocardial infarction or coronary heart disease . Coronary artery score Annual Risk 0-99 0.4% 100-399 1.3% >400 2.4% These three breakpoints correspond to lower, intermediate and high risk states for future coronary events. Such information should be used, along with appropriate clinical judgment, to make decisions regarding the intensity of risk factor management strategies to treat blood lipids and to modify other non-lipid coronary risk factors. Reference: Rupert P et al. Circulation. 2007; 115:402-426 MACRO: None Signed by: Ramses Hassan 08/23/2023 1:14 PM Dictation workstation: [id number] [facility] Work Phone: CT for calcium scoring WO co ntrast and CTA W contrast IV Heart and coronary arteriesOrdered By: Ramses Hassan on 08-23-2023 [facility] Work Phone: CT CARDIAC SCORING WO IV CON TRASTon 08-20-2023 CT CARDIAC SCORING WO IV CONTRAST Interpreted By: Ramses Hassan, STUDY: CT CARDIAC SCORING WO IV CONTRAST; 08/20/2023 10:04 am INDICATION: Signs/Symptoms:ELEVATE D LDL. COMPARISON: None. ACCESSION NUMBER(S): [id number] ORDERING CLINICIAN: GEN ZHENG TECHNIQUE: Using prospective ECG gating, CT scan of the coronary arteries was performed without intravenous contrast. Coronary calcium scoring was performed according to the method of Agatston. FINDINGS: The score and distribution of calcium in the coronary arteries is as follows: LM 0 LAD 0 LCx 0 RCA 0 Total 0 The visualized mid/lower ascending thoracic aorta measures 2.9 cm in diameter. The heart is normal in size. No pericardial effusion is present. No gross evidence of mediastinal or hilar lymphadenopathy or masses is identified. The visualized segments of the lungs are normally expanded. The visualized subdiaphragmatic structures appear intact. IMPRESSION: 1. Coronary artery calcium score of 0*. *Coronary artery calcium scoring may be helpful in predicting the risk for future coronary heart disease events. According to the [place] [employer] Clinical Expert Consensus Task Force, such testing provides important prognostic information in patients with more than one coronary heart disease risk factor. The coronary artery calcium score correlates with the annual risk of a non-fatal myocardial infarction or coronary heart disease . Coronary artery score Annual Risk 0-99 0.4% 100-399 1.3% >400 2.4% These three breakpoints correspond to lower, intermediate and high risk states for future coronary events. Such information should be used, along with appropriate clinical judgment, to make decisions regarding the intensity of risk factor management strategies to treat blood lipids and to modify other non-lipid coronary risk factors. Reference: Rupert P et al. Circulation. 2007; 115:402-426 MACRO: None Signed by: Ramses Hassan 08/23/2023 1:14 PM Dictation workstation: [id number] [facility] CT for calcium scoring WO co ntrast and CTA W contrast IV Heart and coronary arterieson 08-20-2023 Radiology Study observation (narrative) [facility] Work Phone: Basophil percentageOrdered B y: Jayme Zheng on 05-21-2023 Chloride [Moles/Vol] 107 mmol/L 98-107 [facility] Cholesterol [Mass/Vol] 212 mg/dL <200 [facility] Comment on above: <200 mg/dL Desirable 200-240 mg/dL Borderline >240 mg/dL High Risk Glucose [Mass/Vol] 111 mg/dL 74-106 [facility] Comment on above: Fasting Glucose resu lt from 100 to 125 mg/dL suggests IMPAIRED HOMEOSTASIS per A.D.A. criteria. Potassium [Moles/Vol] 4.1 mmol/L 3.5-5.1 [facility] Sodium [Moles/Vol] 137 mmol/L 136-145 [facility] Triglyceride [Mass/Vol] 35 mg/dL <199 [facility] Comment on above: The drugs N-Acetylcy steine and Metamizole may falsely depress this assay.Serum Triglycerides Reference Interval Normal <150 mg/dL Borderline high 150 - 199 mg/dL High 200 - 499 mg/dL Very High > or = 500 mg/dL Laboratory - Chemistry and C hemistry - challengeOrdered By: Jayme Zheng on 05-21-2023 CO2 [Moles/Vol] 24.0 mmol/L 21.0-32.0 [facility] Urea nitrogen/Creatinine [Mass ratio] 23.3 mg/mg 10-20 [facility] No Panel InformationOrdered By: Jayme Zheng on 05-21-2023 Estimated GFR (MDRD) Amer 113 mL/min >60 [facility] Comment on above: GFR Calc Estimated GFR (MDRD) Non-Af Amer 94 mL/min >60 [facility] Comment on above: Non- GFR Calc Thyroid Stimulating Hormone (TSH) 3.02 uIU/mL 0.358-3.74 [facility] Vitamin D 25-Hydroxy 48.4 ng/mL [facility] Comment on above: Vitamin D 25(OH) Sta tus Range Deficiency <20 ng/mL (50nmol/L) Insufficiency 20 - 30 ng/mL (50 - 75 nmol/L) Sufficiency 30 - 100 ng/mL (75 - 250 nmol/L) Toxicity >100 ng/mL (>250 nmol/L) Serum or plasma calcium abad urement (mass/volume)Ordered By: Jayme Zheng on 05-21-2023 Calcium [Mass/Vol] 8.8 mg/dL 8.5-10.1 [facility] Serum or plasma cholesterol in HDL measurement (mass/volume)Ordered By: Jayme Zheng on 05-21-2023 Cholesterol in HDL [Mass/Vol] 72 mg/dL >40 [facility] Comment on above: The drugs N-Acetylcy steine and Metamizole may falsely depress this assay. Reference Range HDL <40 mg/dL Low HDL Cholesterol HDL >or= 60 mg/dL High HDL Cholesterol Serum or plasma cholesterol in VLDL measurement (mass/volume)Ordered By: Jayme Zheng on 05-21-2023 Cholesterol in VLDL [Mass/Vol] 7 mg/dL 5-40 [facility] Serum or plasma creatinine m easurement (mass/volume)Ordered By: Jayme Zheng on 05-21-2023 Creatinine [Mass/Vol] 0.69 mg/dL 0.55-1.02 [facility] Comment on above: The validity of the calculated GFR & GFRAA in patients over 70 years has not been determined. Clinical correlation is essential. Serum or plasma low density lipoprotein (LDL) cholesterol measurement (mass/volume)Ordered By: Jayme Zheng on 05-21-2023 Cholesterol in LDL [Mass/Vol] 133 mg/dL 0-130 [facility] Serum or plasma urea nitroge n measurement (mass/volume)Ordered By: Jayme Zheng on 05-21-2023 Urea nitrogen [Mass/Vol] 16 mg/dL 7-18 [facility] Thin prep Papanicolaou smear with manual screeningOrdered By: Jayme Zheng on 05-21-2023 Thin prep Papanicolaou smear with manual screening 6 5-15 [facility] Culture, urineOrdered By: Peter Rodriguez on 04-19-2023 Bacteria identified Cx Nom (U) Positive [facility] Cervical or vagninal specime n microscopic examination by cytology stain (reported asOrdered By: Dr. Rodriguez on 10-28-2022 Cytology report Cyto stain Doc (Cvx/Vag) Comment . [facility] Comment on above: The Pap smear is a s creening test designed to aid in thedetection of premalignant and malignant conditions of theuterine cervix. It is not a diagnostic procedure andshould not be used as the sole means of detecting cervicalcancer. Both false-positive and false-negative reports dooccur. Detection in cervical specim en of any of human papilloma virus (HPV) 16, 18, 31, 33,Ordered By: Dr. Rodriguez on 10-28-2022 HPV 16+18+31+33+35+39+45+5 1+52+56+58+59+66+68 DNA Probe+sig amp Ql (Cvx) Negative Negative [facility] Comment on above: This nucleic acid am plification test detects fourteen high- risk HPV types (16,18,31,33,35,39,45,51,52,56,58,59,66,68)without differentiation. Laboratory - CytologyOrdered By: Dr. Rodriguez on 10-28-2022 Bight Maker Cyto stain Nom (Cvx/Vag) [ID] Comment . [facility] Comment on above: Grace Verdugo, Cell Assembly Pinner (ASCP) Laboratory - Miscellaneous t estsOrdered By: Dr. Rodriguez on 10-28-2022 Service comment (Unsp spec) [Interp] Comment . [facility] Comment on above: This liquid based Th inPrep(R) pap test was screened withthe use of an image guided system. Service comment (Unsp spec) [Interp] . . [facility] Liquid-based cerv Pap + CT/G C by LEEANN w reflex to high-risk HPV for ASCUSOrdered By: Dr. Rodriguez on 10-28-2022 Cytology report Cyto stain.thin prep Doc (Cvx/Vag) Comment . [facility] Comment on above: Criteria not met, HP V Genotype not performed.Performed at: [place] - [facility] [address] [id number] Director: Felicitas Seymour MD, Phone: [phone] at: =G - [facility] [address] [id number] Director: Felicitas Seymour MD, Phone: [phone] No Panel InformationOrdered By: Dr. Rodriguez on 10-28-2022 Pathology report final diagnosis Narrative Comment . [facility] Comment on above: NEGATIVE FOR INTRAEP ITHELIAL LESION OR MALIGNANCY. Basophil percentageon 2021 Chloride [Moles/Vol] 105 mmol/L 98-[address] Work Phone: Cholesterol [Mass/Vol] 212 mg/dL <200 [facility] Work Phone: Comment on above: <200 mg/dL Desirable 200-240 mg/dL Borderline >240 mg/dL High Risk Glucose [Mass/Vol] 104 mg/dL 74-106 [facility] Work Phone: Comment on above: Fasting Glucose resu lt from 100 to 125 mg/dL suggests IMPAIRED HOMEOSTASIS per A.D.A. criteria. Potassium [Moles/Vol] 3.8 mmol/L 3.5-5.1 [facility] Work Phone: Sodium [Moles/Vol] 140 mmol/L 136-145 [facility] Work Phone: Triglyceride [Mass/Vol] 30 mg/dL <199 [facility] Work Phone: Comment on above: The drugs N-Acetylcy steine and Metamizole may falsely depress this assay.Serum Triglycerides Reference Interval Normal <150 mg/dL Borderline high 150 - 199 mg/dL High 200 - 499 mg/dL Very High > or = 500 mg/dL Laboratory - Chemistry and C hemistry - challengeon 04-09-2022 CO2 [Moles/Vol] 28.0 mmol/L 21.0-32.0 [facility] Work Phone: Urea nitrogen/Creatinine [Mass ratio] 28.5 mg/mg 10-20 [facility] Work Phone: No Panel Informationon 04-09 Estimated GFR (MDRD) Amer 134 mL/min >60 [facility] Work Phone: Comment on above: GFR Calc Estimated GFR (MDRD) Non-Af Amer 111 mL/min >60 [facility] Work Phone: Comment on above: Non- GFR Calc Serum or plasma calcium abad urement (mass/volume)on 04-09-2022 Calcium [Mass/Vol] 9.2 mg/dL 8.5-10.1 [facility] Work Phone: Serum or plasma cholesterol in HDL measurement (mass/volume)on 04-09-2022 Cholesterol in HDL [Mass/Vol] 66 mg/dL >40 [facility] Work Phone: Comment on above: The drugs N-Acetylcy steine and Metamizole may falsely depress this assay. Reference Range HDL <40 mg/dL Low HDL Cholesterol HDL >or= 60 mg/dL High HDL Cholesterol Serum or plasma cholesterol in VLDL measurement (mass/volume)on 04-09-2022 Cholesterol in VLDL [Mass/Vol] 6 mg/dL 5-40 [facility] Work Phone: Serum or plasma creatinine m easurement (mass/volume)on 04-09-2022 Creatinine [Mass/Vol] 0.60 mg/dL 0.55-1.02 [facility] Work Phone: Comment on above: The validity of the calculated GFR & GFRAA in patients over 70 years has not been determined. Clinical correlation is essential. Serum or plasma low density lipoprotein (LDL) cholesterol measurement (mass/volume)on 04-09-2022 Cholesterol in LDL [Mass/Vol] 140 mg/dL 0-130 [facility] Work Phone: Serum or plasma urea nitroge n measurement (mass/volume)on 04-09-2022 Urea nitrogen [Mass/Vol] 17 mg/dL 7-18 [facility] Work Phone: Thin prep Papanicolaou smear with manual screeningon 04-09-2022 Thin prep Papanicolaou smear with manual screening 7 5-15 [facility] Work Phone: CNCOon 05-31-2018 [facility] HNO ID: [id number]: Mammography CoordinatorService: (none)Author Type: PhysicianType: LetterFiled: 06/01/2018 11:31 PMNote Text:May 31, 2018 PID: [id number] [id number] [place], [place] [address]Odbp Ms. Suárez,We are pleased to inform you that the results of your recent breastimaging exam on 05/31/2018 are normal.Your mammogram demonstrates that you have dense breast tissue, which couldhide abnormalities. Dense breast tissue, in and of itself, is arelatively common condition. Therefore, this information is not providedto cause undue concern; rather, it is to raise your awareness and promotediscussion with your health care provider regarding the presence of densebreast tissue in addition to other risk factors.Early detection of cancer is very important. We also understandrecommendati ons regarding breast cancer screening are controversial.Please discuss with your primary care provider which strategy is best foryou and whether a mammogram is right for you.Your imaging studies and report [facility] and are available for yourcontinuing care.Thank you for allowing us to help in meeting your health care needs.Sincerely,Dr. SchultzInterpretony RadiologistWQueen of the Valley Hospital (Normal over 40) Normal [facility] CLARISSA SCREENINGon 05-31-2018 CLARISSA SCREENING * * *Final Report* * *DATE OF EXAM: May 31 2018 9:24AM [facility] [id number] - [facility] SCREENING / REASON: routine * * * * Physician Interpretation * * * *RESULT: #[id number] - [facility] SCREENINGBILATERAL DIGITAL SCREENING MAMMOGRAM WITH CAD: 05/31/2018HISTORY: /Screening Mammogram - patient reports NO breast symptoms /Priors available for comparison.RESULT:TECH NIQUE: The study was acquired using full field digital technology and interpreted from soft copy.Current study was also evaluated with a Computer Aided Detection (CAD).Comparison is made to exams dated: 03/11/2017 mammogram and 11/05/2015 mammogram - [facility].The tissue of both breasts is heterogeneously dense. This may lower the sensitivity of mammography.No significant masses, calcifications, or other findings are seen in either breast.There has been no significant interval change.IMPRESSION: NEGATIVEThere is no mammographic evidence of malignancy. A 1 year screening mammogram is recommended.Reggie Lamb/christiana: 8 09:55:14Imaging Technologist: Jacqueline [place]ING[place](Luisa)(Rivas), [facility] Centerletter sent: Normal over 40Mammogram BI-RADS: [address]: PenradTranscribe Date/Time: May 31 2018 9:13ADictated by: REGGIE SCHULTZ MDThis examination was interpreted and the report reviewed and electronically signed by: REGGIE SCHULTZ MD on May 31 2018 9:55AM [id number] Normal [facility] CNOVon 12-08-2017 CNOV Office Visit ([facility]) BO SUÁREZ ([id number]) 1965 FDate Time Provider Department12/08/17 12:45 PM EJ MARTINEZ) [facility] During your visit today, we recorded the following information about you: Temperature Pulse Respiration Blood pressure 97.7 degrees 74/minute 16/minute 102/60 Weight 51.7 kgAmanda EKTA Martinez 12/08/2017 1:18 PM SignedSUBJECTIVE:Bo Suárez is a 52 year old female. Who presents today with a head cold.She complains of sinus congestion and ear pain. In the afternoons she developsa headache. She has been using aleve and mucinex. She believes that she caughtit from her . He is not feeling better. No fever, abd pain, v cp orsob. Appetite is good but may not be drinking enough fluids.HPIPAST MEDICAL HISTORYDiagnosis Date- History of shingles 08/2011FAMILY HISTORYProblem Relation Age of Onset- Diabetes Mother- Hypertension Mother- Hypertension Father- Cancer Maternal Grandmother age 90, liverSocial HistorySubstance Use Topics- Smoking status: Never Smoker- Smokeless tobacco: Never Used- Alcohol use NoALLERGIESNo Known AllergiesCurrent Outpatient Prescriptions:multivit myles (DAILY MULTIPLE) ORAL tablet Take 1 tablet by mouth once daily.Disp: Rfl: 0Cholecalciferol, Vitamin D3, (VITAMIN D-3) 2,000 unit Tab Take by mouth oncedaily. Disp: Rfl:aspirin, enteric coated (ADULT LOW DOSE ASPIRIN) 81 mg ORAL EC tablet Disp:Rfl: 0No current facility-administered medications for this visit.OBJECTIVE:BP 102/60 Pulse 74 Temp 36.5 ?C (97.7 ?F) (Tympanic) Resp 16 Wt 51.7 kg(114 lb) BMI 20.85 kg/m2ROS all other systems reviewed and are negativePhysical ExamConstitutional: Well developed, well nourished, NAD, alert and oriented toperson , place and time, in no apparent distress.ENT: Head is atraumatic, airway patent, mucosal membranes moist and pink withno exudate and no TECHNICAL INTERN uvula midline. Tm with small effusion and no infectionEyes: EOMI, PERRL, conjunctiva pink, no drainage, vision unchangedNeck: supple with no palpable lymph nodes, no midline tendernessCardiac: Normal rate and rhythm. Heart sounds S1, S2. No murmurs, rubs orgallops.Chest: nontenderRespiratory: No retractions or use of accessory muscles. Breath sounds clearand equal bilaterally.GI: Abdomen soft and non-distended, without tenderness, rebound or guarding.Bowel sounds normal.: no CVA tendernessMS: no swelling tenderness or deformity in upper or lower extremities, nomidline tenderness in thoracic or lumbar spine.Neuro: strength sensation and coordination intact. CN II-XII grossly intact,Skin: warm and dry with out rash, lesion or ecchymosisPsych: alert appropriate, speech clearIt was a pleasure to take care of Bo Suárez today. She will continue totake aleve. I have encouraged her to increase her fluids as she is a littledry today. Patient will follow up with family physician. They may return [facility] or go to the ER for worsening symptoms or concerns. Patientverbalized understanding of plan of care and is in agreement.ASSESSMENT/P NARCISO:1. Viral illness - ICD9: 079.99, ICD10: B34.9Aisabella Martinez CNPReferrjenn Provider: SELF [200]Allergies As of Date: 12/08/2017(No Known Allergies)Date Reviewed: 12/08/2017Reviewed by: Grace Connor Ma - Fully AssessedReason for Visit: Head Congestion [234] Cmt: ear pressure, nasal drainage x 1 weekPrimary Visit Diagnosis:Viral illness [B34.9]Prescriptions as of 12/08/2017 Sig: MULTIVITAMIN TABLET Take 1 tablet by mouth once d* CHOLECALCIFEROL (VITAMIN D3) * Take by mouth once daily. ASPIRIN 81 MG TABLET,DELAYED *Medication notes this encounter ASPIRIN 81 MG TABLET,DELAYED RELEASE >> Grace Connor Ma 12/08/2017 12:46 PM >> GRACE CONNOR MA WedDec 08, 2017 12:46 PM doneProblem List As Of Date: 12/08/2017(None)Encoun ter Number: [id number] Status:Closed by EJ MARTINEZ CNP on 12/08/17 Normal [facility] PROGRESSon 12-08-2017 Protein mass conc HNO ID: [id number]: Ej (Ekta) SingerService: (none)Author Type: Nurse PractitionerType: Progress NotesFiled: 12/08/2017 1:18 PMNote Text:SUBJECTIVE:Bo Suárez is a 52 year old female. Who presents today with a headcold. She complains of sinus congestion and ear pain. In the afternoonsshe develops a headache. She has been using aleve and mucinex. Shebelieves that she caught it from her . He is not feeling better.No fever, abd pain, v cp or sob. Appetite is good but may not be drinkingenough fluids.HPIPAST MEDICAL HISTORYDiagnosis Date- History of shingles 08/2011FAMILY HISTORYProblem Relation Age of Onset- Diabetes Mother- Hypertension Mother- Hypertension Father- Cancer Maternal Grandmother age 90, liverSocial HistorySubstance Use Topics- Smoking status: Never Smoker- Smokeless tobacco: Never Used- Alcohol use NoALLERGIESNo Known AllergiesCurrent Outpatient Prescriptions:multivit myles (DAILY MULTIPLE) ORAL tablet Take 1 tablet by mouth oncedaily. Disp: Rfl: 0Cholecalciferol, Vitamin D3, (VITAMIN D-3) 2,000 unit Tab Take by mouthonce daily. Disp: Rfl:aspirin, enteric coated (ADULT LOW DOSE ASPIRIN) 81 mg ORAL EC tabletDisp: Rfl: 0No current facility-administered medications for this visit.OBJECTIVE:BP 102/60 Pulse 74 Temp 36.5 ?C (97.7 ?F) (Tympanic) Resp 16 Wt51.7 kg (114 lb) BMI 20.85 kg/m2ROS all other systems reviewed and are negativePhysical ExamConstitutional: Well developed, well nourished, NAD, alert and orientedto person , place and time, in no apparent distress.ENT: Head is atraumatic, airway patent, mucosal membranes moist and pinkwith no exudate and no TECHNICAL INTERN uvula midline. Tm with small effusion and noinfectionEyes: EOMI, PERRL, conjunctiva pink, no drainage, vision unchangedNeck: supple with no palpable lymph nodes, no midline tendernessCardiac: Normal rate and rhythm. Heart sounds S1, S2. No murmurs, rubs orgallops.Chest: nontenderRespiratory: No retractions or use of accessory muscles. Breath soundsclear and equal bilaterally.GI: Abdomen soft and non-distended, without tenderness, rebound orguarding. Bowel sounds normal.: no CVA tendernessMS: no swelling tenderness or deformity in upper or lower extremities, nomidline tenderness in thoracic or lumbar spine.Neuro: strength sensation and coordination intact. CN II-XII grosslyintact,Skin: warm and dry with out rash, lesion or ecchymosisPsych: alert appropriate, speech clearIt was a pleasure to take care of Bo Suárez today. She willcontinue to take aleve. I have encouraged her to increase her fluids asshe is a little dry today. Patient will follow up with family physician.They may return to the Urgent Care or go to the ER for worsening symptomsor concerns. Patient verbalized understanding of plan of care and is inagreement.ASSESSMENT /PLAN:1. Viral illness - ICD9: 079.99, ICD10: B34.9Aisabella Martinez CNP Normal [facility] Vital Signs Date Time Vital Sign Value Performing Clinician Jose Angel poe 04-02-2025 14:51-0400 Body height 157.[address] Gen Zheng MD Work Phone: [facility] 04-02-2025 14:51-0400 Body mass index (BMI) [Ratio] 20 kg/m2 Dr. Gen Zheng MD Work Phone: [facility] 04-02-2025 14:51-0400 Body weight 49.[address] Gen Zheng MD Work Phone: [facility] 04-02-2025 14:51-0400 Diastolic blood pressure 70 mm[Hg] Dr. Gen Zheng MD Work Phone: [facility] 04-02-2025 14:51-0400 Systolic blood pressure 129 mm[Hg] Dr. Gen Zheng MD Work Phone: [facility] Encounters Encounter Date Encounter Type Care Provider Facility Start: 04-02-2025 End: 04-02-[address] Gen Zheng MD Work Phone: [facility] Work Phone: Start: 04-02-2025 End: 04-02-[address] Clarissa Valle DO -[facility] Work Phone: Start: 04-02-2025 End: 04-02-[address] Clarissa Valle DO [facility] Start: 04-02-2025 ambulatory Clarissa Cowart cility:[facility] Start: 04-02-[address] Clarissa Valle DO -[facility] Work Phone: Start: 06-15-2024 Encounter for genera l adult medical examination without abnormal findings [facility] Start: 05-25-2024 End: 05-25-2024 ambulatory [facility] Facility:[facility] Start: 02-18-[address] Gen Zheng MD Work Phone: [facility] Start: 10-07-2023 End: 10-07-2023 ambulatory [facility] Start: 10-07-2023 End: 10-07-2023 Encounter for general adult medical examination without abnormal findings [facility] Start: 08-20-2023 End: 08-20-2023 Subsequent hospital visit by physician [address] Comment on above: Pure hypercholestero lemia, unspecified Start: 08-20-2023 End: 08-20-2023 ambulatory [facility] Start: 05-21-2023 End: 05-21-2023 ambulatory [facility] Work Phone: Start: 05-21-2023 End: 05-21-2023 Patient encounter procedure [facility] Start: 04-19-2023 End: 04-19-2023 ambulatory [facility] Work Phone: Start: 04-19-2023 End: 04-19-2023 Patient encounter procedure [facility]-Laboratory, Specimen Work Phone: Start: 11-10-2022 End: 11-10-2022 ambulatory [facility] Work Phone: Start: 11-10-2022 End: 11-10-2022 Patient encounter procedure [facility]patient [facility] Start: 10-28-2022 End: 10-28-2022 ambulatory [facility] Work Phone: Start: 10-28-2022 End: 10-28-2022 Patient encounter procedure [facility]-Laboratory, Specimen Start: 04-09-2022 End: 04-09-2022 Patient encounter procedure [facility] Start: 05-31-2018 End: 05-31-2018 Patient encounter [facility]ESH SIDDI[facility] Start: 12-08-2017 End: 12-09-[address] [facility] Procedures Date Procedure Procedure Detail Performing Clinician Start: 04-02-2025 Screening mammography D r. Gen Zheng MD Work Phone: Start: 08-20-2023 CT CARDIAC SCORING W O IV CONTRAST EGN ZHENG Start: 08-20-2023 Ct heart no contrast quant eval coronry calcium Gen Zheng MD Start: 04-19-2023 Urine culture Start: 11-10-2022 Screening mammography Plan of Treatment Date Care Activity Detail Author Start: 08-22-2030 DTaP/Tdap/Td Vaccine s (2 - Td or Tdap) DTaP/Tdap/Td Vaccines (2 - Td or Tdap) [facility] Start: 08-30-2023 Zoster Vaccines (2 of 2) Zoste r Vaccines (2 of 2) [facility] Start: 06-11-2023 Influenza vaccination Influenz a Vaccine (#1) [facility] Start: 2006 Screening for malign ant neoplasm of breast Mammogram [facility] Start: 1987 Screening for malign ant neoplasm of cervix [facility] Start: 01-10-1984 Hepatitis C screening Hepatitis C [facility] Start: 1967 MMR Vaccines (1 of 1 - Standard series) MMR Vaccines (1 of 1 - Standard series) [facility] Start: 1966 COVID-19 Vaccine (#1) COVID-19 Vacci ne (#1) [facility] Start: 1966 Hepatitis B Vaccines (1 of 3 - 3-dose series) Hepatitis B Vaccines (1 of 3 - 3-dose series) [facility] Start: 1966 HIV screening HIV Screening [facility] Start: 1966 Lipid panel Lipid Panel [facility] Start: 1966 Screening for malign ant neoplasm of colon [facility] Start: 1966 Yearly Adult Physical Yearly Adult P hysical [facility] End: 08-20-2023 CT for calcium scoring WO contrast and CTA W contrast IV Heart and coronary arteries [facility] Service Area Work Phone: Comment on above: Once for 1 Occurrenc es starting 08/20/2023 until 08/20/2023 Payers Date Payer Category Payer Unknown [id number] 2024 Private Health Insurance [id number] 2024 Self-pay [id number] 2022 Private Health Insurance [facility] [id number] 2022-Present P O Meg [id number] [place] [id number] 2022 Private Health Insurance [id number] 2016 Unknown [id number] 1966 Unknown [id number] Unknown [id number] Unknown MED [employer] TPA [id number] Unknown [id number] Unknown [id number] Social History Date Type Detail Facility Start: 09-04-2020 End: 09-04-2020 Tobacco smoking status NHIS Unknown if ever smoked [facility] Start: 09-04-2020 Non-smoker [facility] Start: 1965 Sex Assigned At Female [facility] Start: 1965 Sex Assigned At Not on file [facility] Work Phone: Gender identity Not on file [facility] Work Phone: Start: 08-10-2023 End: 08-20-2023 Exposure to SARS-CoV-2 (event) Not sure [facility] Start: 04-02-2025 Tobacco smoking stat us NHIS Never smoked tobacco (finding) [facility] Progress note 04-02-2025 Note Date & Type Note Facility 04-02-2025 Progress note [facility] Progress note 04-02-2025 Note Date & Type Note Facility 04-02-2025 Progress note Note Date/Time April 02, 2025 3:38pm [facility] [address], [address] [place] [address] OFFICE VISIT Date of Service: 04/02/25 MR#: [id number] Acct: [id number] Name: BO SUÁREZ Rep #: [id number] : 1965 Provider: Dr. 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 Is patient in pain?: No Allergies No Known Allergies Allergy (Verified 04/02/25 14:51) Medications ?Medication ?Instructions ?Recorded ?Confirmed ?Type Bacillus coagulans 250 million 1 ea PO DAILY 09/04/20 04/02/25 History cell chewable tablet calcium 500 mg-vitamin D3 1,000 1 ea PO DAILY 09/04/20 04/02/25 History unit-vitamin K 40 mcg chewable tablet multivitamin 1 tab PO DAILY 02/18/2403/12 History Post menopausal: No Patient : No : No PFSH Surgical History Status post hysteroscopy (~09/12/20) Family History Mother Diabetes Thyroid disorder Father Heart disease Diabetes Social History (Updated 04/02/25 @ 14:57 by Melania Hamlin) Smoking Status: Never smoker alcohol intake: never substance use type: does not use caffeine: Yes what type of physical activity do you participate in: none seatbelt use: always do you feel safe at home: Yes additional social history: - Sly History 3 Elective abortions Hx Para 3 Spontaneous abortions Hx # Term Pregnancies Ectopic pregnancies Hx # Pregnancies Multiple births # of living children Past Pregnancies Del. Date Name GA/Weeks Outcome Route Bth Weight Gen Labor Lgth Anesthesia Del [facility] Provider FOB Unknown Julio Unknown Ken Unknown Lee Unknown Shayla (adopted) Female HPI Encounter for routine gynecological examination Details: BO SUÁREZ is a 60 year old who presents for annual exam. Last PAP: 10/28/22 History of abnormal PAP: no Last mammogram: today History of abnormal mammogram: no Colon cancer screening:up to date and followed by pcp Other preventative health care screenings: followed by pcp Female Reproductive History Questions: metorrhagia: No, sexually active: Yes, dyspareunia: No and PCB: No Menopausal Symptoms: No hot flashes, No night sweats, No weight change, No mood changes, No difficulty concentrating, No sleep problems and No change in libido ROS Const Constitutional: Reports as per HPI; Denies fatigue, increased appetite, poor appetite, night sweats, weight gain or weight loss Cardio Card: Denies chest pain Resp Resp: Denies cough or dyspnea GI GI: Reports as per HPI; Denies abdominal pain, bloating, constipation, nausea or vomiting : Reports as per HPI and other; Denies difficulty voiding, dysuria, hematuria, hot flashes, nipple discharge, pelvic pain, prolapse symptoms, urinary frequency, urinary incontinence, urinaryurgency, vaginal discharge, vaginal dryness, vaginal odor or vaginal pruritus Skin Skin/Breast: Denies changing lesions, breast mass, breast pain, breast skin changes or nipple discharge Psych Psych: Denies anxiety, change in libido, depression or difficulty concentrating Exam Const General: cooperative, healthy appearing, comfortable, no acute distress, well developed and well groomed [facility] Head: normal to inspection and normocephalic Ears: hearing grossly normal bilaterally and external ears normal Nose: external nose normal Face and sinus: normal facial exam Neck Neck: normal visual inspection, full ROM and no lymphadenopathy Thyroid: thyroid normal Chest Chest palpation & inspection: normal inspection of the chest Breast inspection: normal inspection of the breasts and normal inspection of theaxillae Breast palpation: normal palpation of the breasts, normal palpation of the axillae and no axillary lymphadenopathy Resp Effort & Inspection: normal respiratory effort GI Inspection: normal to inspection and non-distended Palpation: soft, no hepatosplenomegaly and no guarding General: bladder normal to palpation External Female Exam: normal external appearance, normal appearance of the urethra and no lesions Urethra: normal appearance of the urethra and normal palpation Speculum Exam - Vagina: normal appearance of the vagina and normal vaginal discharge Speculum Exam - Cervix: normal appearance of the cervix, no cervical discharge, no lesions and nontender Bimanual Exam- Vagina & Uterus: normal bimanual exam, uterine size normal, bladder normal to palpation, No tender, uterine mobility normal, consistency normal, non-tender and no cervical motion tenderness Bimanual Exam- Adnexa, other: normal adnexae, no masses and non-tender Skin General: no rashes or lesions noted Neuro General: patient alert, moves all extremities and no focal motor deficits Extrem General: normal to inspection and no pedal edema Psych Appearance: grossly normal Mental Status: mental status grossly normal Affect: normal affect Speech and Movement: speech and movement normal Attitude: cooperative Coding Level of Care Code Off vis,est,prev 40-64yrs Diagnoses Encounter for routine gynecological examination Z01.419 Assessment and Plan Assessment and Plan (1) Encounter for routine gynecological examination: Plan: Cervical cancer screening: up to date Breast cancer screening: done to day an normal other health maintenance examination reviewed and orders placed if needed. Encouraged maintenance of a healthy weight and active lifestyle and handout given. Annual exam handout including recommendations for good health guidelines, Calcium/vitamin D recommendations, and basic screening information given. Problem list up to date, see problem list details for any additional plan information. Follow up in one year for annual health maintenance exam or sooner if needed. 04/02/25 1538 <Electronically signed by Clarissa Torres DO> Date _ Clarissa Valle DO Cosigner Signature: Date (if applicable) CC: ~ [facility] Work Phone: Clinical Note 10-28-2022 Note Date & Type Note Facility 10-28-2022 Note [facility] Pap Smear Specimen Adequacy October 28, 2022 9:02am Comment . Satisfactory for evaluation. Endocervical and/or squamous metaplasticcells (endocervical component) are present.Areas of partially obscuring inflammatory exudate are present. Comment on above: Satisfactory for remy luation. Endocervical and/or squamous metaplasticcells (endocervical component) are present.Areas of partially obscuring inflammatory exudate are present. Clinical Note 10-28-2022 Note Date & Type Note Facility 10-28-2022 Note [facility] Pap Smear Specimen Adequacy October 28, 2022 9:02am Comment . Satisfactory for evaluation. Endocervical and/or squamous metaplasticcells (endocervical component) are present.Areas of partially obscuring inflammatory exudate are present. Comment on above: Satisfactory for remy luation. Endocervical and/or squamous metaplasticcells (endocervical component) are present.Areas of partially obscuring inflammatory exudate are present. Evaluation note Note Date & Type Note Facility Evaluation note No assessment information availa ble [facility] Work Phone: Evaluation note Note Date & Type Note Facility Evaluation note Diagnosis Pure hypercholesterolemia, unspecified documented in this encounter [facility] Work Phone: Evaluation note Note Date & Type Note Facility Evaluation note Diagnosis Pure hypercholesterolemia, unspecified documented in this encounter [facility] Work Phone: Evaluation note Note Date & Type Note Facility Evaluation note Diagnosis Onset Date Resolution Encounter for routine gynecological examination noneactive April 02, 2025 2:46pm [facility] Work Phone: Reason for referral (narrative) Note Date & Type Note Facility Reason for referral (narrative) No reason for referral information available [facility] Work Phone: Summary Purpose Family History Relationship Condition Age at Onset Recorded Date/T raffi mother Diabetes mellitus Unknown Disorder of thyroid Unknown father Cardiac disease Unknown Diabetes mellitus Unknown Advance Directives Advance Directive Response Recorded Date/ Time Living Will Yes September 04, 020 9:14am Power of Pie Chef Yes September 04, 2020 9:14am Advance Directive Response Recorded Date/ Time Living Will Yes September 04, 020 8:14am Power of Pie Chef Yes September 04, 2020 8:14am Chief Complaint and Reason for Visit Chief Complaint SCREENING Chief Complaint Admit Date screen for breast cancer April 02, 2025 1:32pm 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, 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 pm Reason for Visit Admit Date Encounter for routine gynecological exam ination April 02, 2025 2:46pm Reason for Referral Specialty Diagnoses / Procedures Referred By Contac t Referred To Contact Radiology Diagnoses Pure hypercholesterolemia, unspecified Procedures CT cardiac scoring wo IV contrast Gen Zheng MD [address] [facility] [address] [place] [address] Referral ID Status Reason Start Date Expiration Date Visits Requested Visits Authorized [id number] Authorized Perform Procedure 3 08/09/2024 1 1 Specialty Diagnoses / Procedures Referred By Contac t Referred To Contact Radiology Diagnoses Pure hypercholesterolemia, unspecified Procedures CT cardiac scoring wo IV contrast Gen Zheng MD [address] [facility] [address] [place] [address] Additional Source Comments INFORMATION SOURCE (unrecogn ized section and content) DATE CREATED AUTHOR 06/03/2018 [facility] DATE CREATED AUTHOR AUTHOR'S ORGANIZ ATION 10/08/2023 [place] DATE CREATED AUTHOR AUTHOR'S ORGANIZ ATION 06/20/2024 [facility] DATE CREATED AUTHOR AUTHOR'S ORGANIZ ATION 03/28/2025 [facility] Goals (unrecognized section and content) Goals may be documented in a n alternate sectionGoals may be documented in an alternate sectionGoals may be documented in an alternate sectionGoals may be documented in an alternate sectionGoals may be documented in an alternate sectionGoals may be documented in an alternate section Care Teams (unrecognized sec tion and content) Team Status: Active Member Role Status Dates Dr. Jayme Zheng MD Family Provider Active Dr. Jayme Zheng MD Primary Care Provider Activ e Team Status: Inactive Member Role Status Dates Dr. Jayme Zheng MD Primary Care Provider Activ e Dr. Crystal Rodriguez DO Attending Provider Active Team Status: Inactive Member Role Status Dates Dr. Jayme Zheng MD Primary Care Provider, Atte nding Provider Active Medical Physics Teacher Relationship Specialty Start Date End Date Gen Zheng MD [facility] [address] [facility] [address] [place] [address] PCP - General Family Medicine 08/12/23 Medical Physics Teacher Relationship Specialty Start Date End Date Gen Zheng MD PCP - General Family Medicine 08/12/23 Team Status: Active Member Role Status Dates Dr. Gen Zheng MD Primary Care Provider Acti ve Team Status: Active Member Role Status Dates Dr. Gen Zheng MD Primary Care Provider Acti ve Start: April 02, 2025 Dr. Clarissa Valle DO Attending Provider Activ e Start: April 02, 2025 Dr. Clarissa Valle DO Referring Provider Activ e Start: April 02, 2025 Team Status: Inactive Member Role Status Dates Dr. Gen Zheng MD Primary Care Provider Acti ve Start: April 02, 2025 End: April 02, 2025 Dr. Gen Zheng MD Referring Provider Active Start: April 02, 2025 End: April 02, 2025 Dr. Clarissa Valle DO Attending Provider Activ e Start: April 02, 2025 End: April 02, 2025 Reason for Visit (unrecogniz ed section and content) Specialty Diagnoses / Procedures Referred By Contac t Referred To Contact Radiology Diagnoses Pure hypercholesterolemia, unspecified Procedures CT cardiac scoring wo IV contrast Gen Zheng MD [address] [facility] [address] [place] [address] Referral ID Status Reason Start Date Expiration Date Visits Requested Visits Authorized [id number] Authorized Perform Procedure 3 08/09/2024 1 1 Specialty Diagnoses / Procedures Referred By Contac t Referred To Contact Radiology Diagnoses Pure hypercholesterolemia, unspecified Procedures CT cardiac scoring wo IV contrast Gen Zheng MD [address] [facility] [address] [place] [address] FOR RECORDS PERTAINING TO PATIENTS WHO ARE OR HAVE BEEN ENROLLED IN A CHEMICAL DEPENDENCY/SUBSTANCEABUSE PROGRAM, SOME INFORMATION MAY BE OMITTED. This clinical summary was aggregated from multiple sources. Caution should be exercised in using it in the provision of clinical care. This summary normalizes information from multiple sources, and as a consequence, information in this document may materially change the coding, format and clinical context of patient data. In addition, data may be omitted in some cases. CLINICAL DECISIONS SHOULD BE BASED ON THE PRIMARY CLINICAL RECORDS. [facility] [employer] provides no warranty or guarantee of the accuracy or completeness of information in this document.
== END | disposition home or self-care (01) ==
LOC: OPBI 13:33
PROVIDERS: PCP Family Medicine; Referring Provider Obstetrics & Gynecology; Visit Provider Obstetrics & Gynecology
DX: Z12.31 Encounter for screening mammogram for malignant neoplasm of breast (principal)
CPT/HCPCS: 77063; 77067

== ENCOUNTER → 2025-06-26 | Outpatient (CLI) | payer BC, SELFPAY ==
[2025-06-26 12:48] LABS: Anion Gap 12 (5-15); BUN 20 mg/dL (4-19); BUN/Creat Ratio 32.2 RATIO (10-20); Calcium,Total 9.6 mg/dL (7.6-11.0); Carbon Dioxide 23.5 mmol/L (21.0-32.0); Chloride 104 mmol/L (98-108); Cholesterol 210 mg/dL (<=200); Glucose 110 mg/dL (70-99); Low Density Lipoprotein Calc. 136 mg/dL; Potassium 3.6 mmol/L (3.3-5.1); Triglycerides 38 mg/dL; Very Low Density Lipoprotein 8 mg/dL (5-40); Vitamin D,25 Hydroxy 38.6 ng/mL (30-100); cholesterol:hdl ratio screen 3.14
== END | disposition home or self-care (01) ==
LOC: MFPLAB 08:52
PROVIDERS: Family Medicine; PCP Family Medicine; Visit Provider Family Medicine
DX: E78.00 Pure hypercholesterolemia, unspecified (principal); R73.01 Impaired fasting glucose
CPT/HCPCS: 36415; 80048; 80061; 82306; 84443